=== PATIENT | female | born 1960 | race Caucasian/White ===

== ENCOUNTER 2019-12-29 23:16 | Observation (INO) ==
[2019-12-29 23:24] VITALS: BMI 28.1
--- NOTE | 2019-12-29 23:36 | DR.GENAD ---
HPI Time Seen Time Seen by Provider: 12/29/19 23:35 PCP Primary Care Physician: IAMK HPI Comment HPI Comment: Pt found unresponsive as below; unable to obtain additional info as family not available. Complaint/Symptoms Chief Complaint:: EMS CALLED OUT TO UNRESPONSIVE, UPON PTS ARRIVAL TO ER PTS FAMILY SAID SHE TOOK SOMA/CLONAZEPAM 30 MINS PRIOR TO CALLING EMS, UNK HOW MANY OR IF ANY THING ELSE, PT RESPONDS TO PAINFUL STIMULI. MD AT BEDSIDE COVID-19 Coronavirus risk:travel/contact w/high risk person: No Has patient experienced Coronavirus symptoms: No Source History Provided: Family Member and EMS Mode of Arrival Mode of Arrival: EMS Timing Onset of Chief Complaint: 12/29/19 PMH PMH Past Medical History: No Past Medical History Comment: UNK Past Surgical History: No Surgical History: Unknown Family History History of Family Medical Conditions: No Family Medical History Comment: UNK Social History Does patient currently use any type of tobacco product: No Have you used tobacco products in the last 12 months: No Type of Tobacco Use: None Does any household member use tobacco: No Alcohol Use: None Do you use any recreational Drugs:: No Lives With: Family Lives Where: Home Travel Risk Coronavirus risk:travel/contact w/high risk person: No Has patient experienced Coronavirus symptoms: No Infectious screening In the last 2 months have you had wt loss of >10#?: NO Have you had fever, night sweats or hemotysis?: No Have you traveled outside the country in the last 6 months?: No Isolation: Standard ROS Review of Systems Unable to Obtain Due To: Altered mental status (unresponsive) PE Vital Signs Vitals: Temperature 96.7 F Pulse Rate [Apical] 54 Pulse Rate 61 Respiratory Rate 24 Blood Pressure [Left Arm] 167/85 Blood Pressure 107/67 O2 Sat by Pulse Oximetry 98 General Limitations: Altered Mental Status (unresponsive) General Appearance: Appears Intoxicated Head Head Exam: Normal Inspection and Atraumatic Eyes Eye exam: Other (1 mm pupils with little reaction) Neck Neck Exam: Normal Inspection, Full ROM and Trachea Midline Chest Chest Inspection: Normal Inspection Respiratory Respiratory Exam: Normal Lung Sounds Bilat and Accessory Muscle Use Respiratory Exam: Bilateral: Clear to Auscultation Cardiovascular Cardiovascular Exam: Regular Rate and Normal Rhythm Abdominal Exam Abdominal Exam: Normal Inspection, Normal Bowel Sounds and Soft Neurologic Neurological Exam: Other (unresponsive to sternal rub) Skin Skin Exam: Warm and Dry COURSE Treatment Treatment: [address] Ordonez Reevaluation 1st: Improved (moving more) 2nd: Improved (much more alert; hollering out intermittently for Jonel) ROR Labs Reviewed Laboratory Results Reviewed?: Yes Result Diagrams: 12/29/19 23:44 12/31/19 04:00 Laboratory: WBC 5.6 X10^3/uL (3.6-10.0) 12/29/19 23:44 RBC 3.78 X10^6/uL (3.5-5.4) 12/29/19 23:44 Hgb 12.5 g/dL (12.0-16.0) 12/29/19 23:44 Hct 36.8 % (36.0-47.0) 12/29/19 23:44 MCV 97.3 fL (80.0-100.0) 12/29/19 23:44 MCH 33.0 pg (27.0-34.0) 12/29/19 23:44 MCHC 33.9 g/dL (33.0-35.0) 12/29/19 23:44 RDW 14.1 % (11.6-16.5) 12/29/19 23:44 Plt Count 141 X10^3/uL (150.0-450.0) L 12/29/19 23:44 MPV 8.6 fL (7.4-11.0) 12/29/19 23:44 Neut % (Auto) 38.3 % (42.0-75.0) L 12/29/19 23:44 Lymph % (Auto) 51.2 % (21.0-51.0) H 12/29/19 23:44 [place] % (Auto) 5.1 % (0.0-13.0) 12/29/19 23:44 Eos % (Auto) 4.2 % (0.9-2.9) H 12/29/19 23:44 Baso % (Auto) 1.2 % (0.2-1.0) H 12/29/19 23:44 Neut # (Auto) 2.2 x10^3/uL (2.2-4.8) 12/29/19 23:44 Lymph # (Auto) 2.9 X10^3/uL (1.3-2.9) 12/29/19 23:44 [place] # (Auto) 0.3 x10^3/uL (0.3-0.8) 12/29/19 23:44 Eos # (Auto) 0.2 x10^3/uL (0.0-0.2) 12/29/19 23:44 Baso # (Auto) 0.1 X10^3/uL (0.0-0.1) 12/29/19 23:44 Absolute Nucleated RBC 0.1 /100WBC 12/29/19 23:44 Sodium 148 mmol/L (136-145) H 12/30/19 07:08 Corrected Sodium TNP 12/30/19 07:08 Potassium 3.5 mmol/L (3.5-5.1) 12/30/19 07:08 Chloride 111 mmol/L (98-107) H 12/30/19 07:08 Carbon Dioxide 28.2 mmol/L (21-32) 12/30/19 07:08 BUN 10 mg/dL (7-18) 12/30/19 07:08 Creatinine 1.00 mg/dL (0.55-1.02) 12/30/19 07:08 Est GFR (MDRD) Af Amer > 60 (>60) 12/30/19 07:08 Est GFR (MDRD) Non-Af > 60 (>60) 12/30/19 07:08 Glucose 88 mg/dL (65-99) 12/30/19 07:08 Calcium 8.9 mg/dL (8.5-10.1) 12/30/19 07:08 Corrected Calcium 9.1 mg/dL (8.5-10.1) 12/29/19 23:44 Magnesium 1.8 mg/dL (1.7-2.9) 12/30/19 07:08 Total Bilirubin 0.20 mg/dL (0.2-1.0) 12/29/19 23:44 AST 14 Units/L (15-37) L 12/29/19 23:44 ALT 13 Units/L (12-78) 12/29/19 23:44 Alkaline Phosphatase 63 Units/L (46-116) 12/29/19 23:44 Total Protein 6.4 g/dL (6.4-8.2) 12/29/19 23:44 Albumin 3.3 g/dL (3.4-5.0) L 12/29/19 23:44 Globulin 3.1 g/dL (2.5-4.5) 12/29/19 23:44 Albumin/Globulin Ratio 1.1 Ratio (1.1-2.1) 12/29/19 23:44 Specimen Type Catherized urine 12/30/19 10:46 Urine Color Yellow (YELLOW) 12/30/19 10:46 Urine Appearance Hazy (CLEAR) 12/30/19 10:46 Urine pH 6.5 (5.0 - 8.0) 12/30/19 10:46 Ur Specific [place] 1.010 (1.000-1.030) 12/30/19 10:46 Urine Protein Negative (NEGATIVE) 12/30/19 10:46 Urine Glucose (UA) Negative (NEGATIVE) 12/30/19 10:46 Urine Ketones Negative (NEGATIVE) 12/30/19 10:46 Urine Occult Blood 1+ (NEGATIVE) 12/30/19 10:46 Urine Nitrite Negative (NEGATIVE) 12/30/19 10:46 Urine Bilirubin Negative (NEGATIVE) 12/30/19 10:46 Urine Urobilinogen Normal (NORMAL) 12/30/19 10:46 Ur Leukocyte Esterase Negative (NEGATIVE) 12/30/19 10:46 Urine RBC 0-2 /HPF (0-3) 12/30/19 10:46 Urine WBC None seen /HPF (0-5) 12/30/19 10:46 Ur Squamous Epith Cells Rare /HPF (NEGATIVE) 12/30/19 10:46 Urine Bacteria Negative /HPF (NEGATIVE) 12/30/19 10:46 Ur Culture Indicated? No/not indicated 12/30/19 10:46 Urine Opiates Screen Negative (NEG=<300) 12/30/19 00:08 Urine Methadone Screen Negative (NEG=<300) 12/30/19 00:08 Ur Barbiturates Screen Negative (NEG=<200) 12/30/19 00:08 Ur Phencyclidine Scrn Negative (NEG=<25) 12/30/19 00:08 Ur Amphetamines Screen Negative (NEG=<1000) 12/30/19 00:08 U Benzodiazepines Scrn Positive (NEG=<200) A 12/30/19 00:08 Urine Cocaine Screen Negative (NEG=<300) 12/30/19 00:08 U Marijuana (THC) Screen Negative (NEG=<50) 12/30/19 00:08 Opioid Opioid Risk Tool Age (Urban box if 16-45): No Total: 0 Total Score Risk Category: Low Risk Copyright: Uriel CALDERON predicting aberrant behaviors Diagnosis Discharge Problem: Unresponsive, Hypokalemia, Altered mental status, Hypothermia Instructions Instructions: Confusion Hypokalemia Hand Washing, [id number] Drug Overdose Personal Hygiene Hypothermia Prevention Forms: Precautions for COVID19 Patient Portal Social Distancing
[2019-12-29 23:56] LABS: BASOPHILS # (AUTO) 0.1 X10^3/uL (0.0-0.1); BASOPHILS % (AUTO) 1.2 % (0.2-1.0); EOSINOPHILS # (AUTO) 0.2 x10^3/uL (0.0-0.2); EOSINOPHILS % (AUTO) 4.2 % (0.9-2.9); HEMATOCRIT 36.8 % (36.0-47.0); HEMOGLOBIN 12.5 g/dL (12.0-16.0); LYMPHOCYTES # (AUTO) 2.9 X10^3/uL (1.3-2.9); LYMPHOCYTES % (AUTO) 51.2 % (21.0-51.0); MEAN CORPUSCULAR HGB CONC 33.9 g/dL (33.0-35.0); MEAN CORPUSCULAR VOLUME 97.3 fL (80.0-100.0); MEAN PLATELET VOLUME 8.6 fL (7.4-11.0); MONOCYTES # (AUTO) 0.3 x10^3/uL (0.3-0.8); MONOCYTES % (AUTO) 5.1 % (0.0-13.0); NEUTROPHILS # (AUTO) 2.2 x10^3/uL (2.2-4.8); NEUTROPHILS % (AUTO) 38.3 % (42.0-75.0); PLATELET COUNT 141 X10^3/uL (150.0-450.0); RED BLOOD COUNT 3.78 X10^6/uL (3.5-5.4); RED CELL DISTRIBUTION WIDTH 14.1 % (11.6-16.5); WHITE BLOOD COUNT 5.6 X10^3/uL (3.6-10.0)
[2019-12-30 00:02] LABS: BLOOD UREA NITROGEN 11 mg/dL (7-18); CALCIUM 8.5 mg/dL (8.5-10.1); CARBON DIOXIDE 30.2 mmol/L (21-32); CHLORIDE 110 mmol/L (98-107); CREATININE 0.95 mg/dL (0.55-1.02); SODIUM 148 mmol/L (136-145); eGFR NON BLACK RACES > 60 (>60)
[2019-12-30 00:07] LABS: ALANINE AMINOTRANSFERASE 13 Units/L (12-78); ALBUMIN 3.3 g/dL (3.4-5.0); ALKALINE PHOSPHATASE 63 Units/L (46-116); ASPARTATE AMINO TRANSFERASE 14 Units/L (15-37); COR CA(FOR HYPOALB) 9.1 mg/dL (8.5-10.1); TOTAL PROTEIN 6.4 g/dL (6.4-8.2)
[2019-12-30] MEDS: NS + KCL 40 MEQ/L 1,000 ML IV SCH (01:50)
[2019-12-30 07:19] LABS: BLOOD UREA NITROGEN 10 mg/dL (7-18); CALCIUM 8.9 mg/dL (8.5-10.1); CARBON DIOXIDE 28.2 mmol/L (21-32); CHLORIDE 111 mmol/L (98-107); MAGNESIUM 1.8 mg/dL (1.7-2.9); SODIUM 148 mmol/L (136-145); eGFR NON BLACK RACES > 60 (>60)
[2019-12-30] MEDS ORDERED: NS 500 ML IV 1,000 ML IV ONE (08:12)
[2019-12-30] MEDS ORDERED: NS 1000 ML 1,000 ML ONE (08:14)
[2019-12-30] MEDS ORDERED: NS 1000 ML 1,000 ML IV ONE (08:23)
[2019-12-30] MEDS ORDERED: ROMAZICON INJ 0.5 MG IVP ONE (08:28)
--- NOTE | 2019-12-30 08:38 | CT ---
HISTORYAltered mental statusSTUDYBRAIN W/O CONTechnique: Axial noncontrast images with coronal and sagittal reformats. Dose reduction procedures were used with mA/kv adjusted for body size.COMPARISONNoneFINDINGSThe ventricles are normal in size shape and position. There is some cortical atrophy present likely age related. There is a small old CVA in the right posterior frontal subcortical white matter. 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 The visualized sinuses are clear. The calvarium is intact.IMPRESSIONNo definite acute intracranial abnormalitySmall-vessel diseaseMild cortical atrophy likely age related.Old infarct right posterior frontal cortex and subcortical white matterCSF density lesion in the right posterior fossa likely a benign extra-axial cystElectronically signed by: LACHO REDDING (Dec 30, 2019 08:36:51)
[2019-12-30] MEDS ORDERED: ROMAZICON INJ 0.5 MG ONE (09:25)
[2019-12-30 11:04] LABS: BILIRUBIN,URINE NEGATIVE (NEGATIVE); BLOOD/HEMOGLOBIN,URINE 1+ (NEGATIVE); GLUCOSE, URINE NEGATIVE (NEGATIVE); KETONES,URINE NEGATIVE (NEGATIVE); LEUKOCYTE ESTERASE ,URINE NEGATIVE (NEGATIVE); NITRITES,URINE NEGATIVE (NEGATIVE); PH,URINE 6.5 (5.0 - 8.0); PROTEIN,URINE NEGATIVE (NEGATIVE); UROBILINOGEN,URINE NORMAL (NORMAL)
[2019-12-30 11:10] LABS: APPEARANCE,URINE HAZY (CLEAR); COLOR,URINE YELLOW (YELLOW)
[2019-12-30 11:23] LABS: RBC,URINE 0-2 /HPF (0-3); SQUAMOUS EPITHELIAL CELL,UR RARE /HPF (NEGATIVE)
[2019-12-30 11:24] LABS: BACTERIA,URINE NEGATIVE /HPF (NEGATIVE)
--- NOTE | 2019-12-30 11:45 | DR.H&P ---
H&P History & Physical for Day of: H&P Date: 12/30/19 Chief Complaint Chief Complaint: Altered mental status Allergies Allergies Allergy/AdvReac Type Severity Reaction Status Date / Time cephalexin [From Keflex] Allergy Verified 12/29/19 23:24 History of Present Illness History of Present Illness: Pt is a 59 y/o f pmhx HTN, NII, Muscle spasms, admitted for altered mental status after taking soma and clonazepam. Pt presented to the ED via EMS after being found unresponsive and no additional information obtained as family not available. However, they told EMS that she had taken medication 30 minutes prior to them calling. Initial labs/imaging: Brain CT:No definite acute intracranial abnormality. Wbc 5.6, Hgb 12.5, Plt 141, Na 148, K 2.9, Cr 0.95, Mag 1.8, AST 14, ALT 13, UA negative. -Pt was given flumazenil and admitted for further monitoring as medication effects wear off. She is still having slurred speech, drowsiness, fatigue, and weakness. She is AOx2. Electrolyte replacement per protocol. Hold sedating medications. Continue to monitor and follow up labs in morning. Past Surgical History Surgical History: Unknown Social History Does patient currently use any type of tobacco product: No Have you used tobacco products in the last 12 months: No Type of Tobacco Use: None Does any household member use tobacco: No Alcohol Use: None Medications Home Medications: cephalexin [From Keflex] Allergy (Verified 12/29/19 23:24) CONTINUE taking the following medications atorvastatin 40 mg PO HS 12/30/19 [History] carisoprodol 350 mg PO TID PRN 12/30/19 [History] clonazepam 1 mg PO BID PRN 12/30/19 [History] gabapentin 300 mg PO TID 12/30/19 [History] lisinopril 10 mg PO DAILY 12/30/19 [History] pantoprazole 40 mg PO DAILY 12/30/19 [History] quetiapine 200 mg PO HS 12/30/19 [History] topiramate 100 mg PO BID 12/30/19 [History] Labs Result Diagrams: 12/29/19 23:44 12/30/19 07:08 Labs: Laboratory WBC 5.6 X10^3/uL (3.6-10.0) 12/29/19 23:44 RBC 3.78 X10^6/uL (3.5-5.4) 12/29/19 23:44 Hgb 12.5 g/dL (12.0-16.0) 12/29/19 23:44 Hct 36.8 % (36.0-47.0) 12/29/19 23:44 MCV 97.3 fL (80.0-100.0) 12/29/19 23:44 MCH 33.0 pg (27.0-34.0) 12/29/19 23:44 MCHC 33.9 g/dL (33.0-35.0) 12/29/19 23:44 RDW 14.1 % (11.6-16.5) 12/29/19 23:44 Plt Count 141 X10^3/uL (150.0-450.0) L 12/29/19 23:44 MPV 8.6 fL (7.4-11.0) 12/29/19 23:44 Neut % (Auto) 38.3 % (42.0-75.0) L 12/29/19 23:44 Lymph % (Auto) 51.2 % (21.0-51.0) H 12/29/19 23:44 [place] % (Auto) 5.1 % (0.0-13.0) 12/29/19 23:44 Eos % (Auto) 4.2 % (0.9-2.9) H 12/29/19 23:44 Baso % (Auto) 1.2 % (0.2-1.0) H 12/29/19 23:44 Neut # (Auto) 2.2 x10^3/uL (2.2-4.8) 12/29/19 23:44 Lymph # (Auto) 2.9 X10^3/uL (1.3-2.9) 12/29/19 23:44 [place] # (Auto) 0.3 x10^3/uL (0.3-0.8) 12/29/19 23:44 Eos # (Auto) 0.2 x10^3/uL (0.0-0.2) 12/29/19 23:44 Baso # (Auto) 0.1 X10^3/uL (0.0-0.1) 04/20/20 23:44 Absolute Nucleated RBC 0.1 /100WBC 12/29/19 23:44 Sodium 148 mmol/L (136-145) H 12/30/19 07:08 Corrected Sodium TNP 12/30/19 07:08 Potassium 3.5 mmol/L (3.5-5.1) 12/30/19 07:08 Chloride 111 mmol/L (98-107) H 12/30/19 07:08 Carbon Dioxide 28.2 mmol/L (21-32) 12/30/19 07:08 BUN 10 mg/dL (7-18) 12/30/19 07:08 Creatinine 1.00 mg/dL (0.55-1.02) 12/30/19 07:08 Est GFR (MDRD) Af Amer > 60 (>60) 12/30/19 07:08 Est GFR (MDRD) Non-Af > 60 (>60) 12/30/19 07:08 Glucose 88 mg/dL (65-99) 12/30/19 07:08 Calcium 8.9 mg/dL (8.5-10.1) 12/30/19 07:08 Corrected Calcium 9.1 mg/dL (8.5-10.1) 12/29/19 23:44 Magnesium 1.8 mg/dL (1.7-2.9) 12/30/19 07:08 Total Bilirubin 0.20 mg/dL (0.2-1.0) 12/29/19 23:44 AST 14 Units/L (15-37) L 12/29/19 23:44 ALT 13 Units/L (12-78) 12/29/19 23:44 Alkaline Phosphatase 63 Units/L (46-116) 12/29/19 23:44 Total Protein 6.4 g/dL (6.4-8.2) 12/29/19 23:44 Albumin 3.3 g/dL (3.4-5.0) L 12/29/19 23:44 Globulin 3.1 g/dL (2.5-4.5) 12/29/19 23:44 Albumin/Globulin Ratio 1.1 Ratio (1.1-2.1) 12/29/19 23:44 Specimen Type Catherized urine 12/30/19 10:46 Urine Color Yellow (YELLOW) 12/30/19 10:46 Urine Appearance Hazy (CLEAR) 12/30/19 10:46 Urine pH 6.5 (5.0 - 8.0) 12/30/19 10:46 Ur Specific [place] 1.010 (1.000-1.030) 12/30/19 10:46 Urine Protein Negative (NEGATIVE) 12/30/19 10:46 Urine Glucose (UA) Negative (NEGATIVE) 12/30/19 10:46 Urine Ketones Negative (NEGATIVE) 12/30/19 10:46 Urine Occult Blood 1+ (NEGATIVE) 12/30/19 10:46 Urine Nitrite Negative (NEGATIVE) 12/30/19 10:46 Urine Bilirubin Negative (NEGATIVE) 12/30/19 10:46 Urine Urobilinogen Normal (NORMAL) 12/30/19 10:46 Ur Leukocyte Esterase Negative (NEGATIVE) 12/30/19 10:46 Urine RBC 0-2 /HPF (0-3) 12/30/19 10:46 Urine WBC None seen /HPF (0-5) 12/30/19 10:46 Ur Squamous Epith Cells Rare /HPF (NEGATIVE) 12/30/19 10:46 Urine Bacteria Negative /HPF (NEGATIVE) 12/30/19 10:46 Ur Culture Indicated? No/not indicated 12/30/19 10:46 Urine Opiates Screen Negative (NEG=<300) 12/30/19 00:08 Urine Methadone Screen Negative (NEG=<300) 12/30/19 00:08 Ur Barbiturates Screen Negative (NEG=<200) 12/30/19 00:08 Ur Phencyclidine Scrn Negative (NEG=<25) 12/30/19 00:08 Ur Amphetamines Screen Negative (NEG=<1000) 12/30/19 00:08 U Benzodiazepines Scrn Positive (NEG=<200) A 12/30/19 00:08 Urine Cocaine Screen Negative (NEG=<300) 12/30/19 00:08 U Marijuana (THC) Screen Negative (NEG=<50) 12/30/19 00:08 Review of Systems Constitutional: Weakness Eyes: No Symptoms Reported ENT: No Symptoms Reported Respiratory: No Symptoms Reported Cardiovascular: No Symptoms Reported Gastrointestinal: No Symptoms Reported Genitourinary: No Symptoms Reported Musculoskeletal: No Symptoms Reported Skin: No Symptoms Reported Neurological: Weakness, Change in Speech and Confusion Physical Exam Vital Signs: Temperature 96.7 F Pulse Rate [Apical] 54 Pulse Rate 61 Respiratory Rate 24 Blood Pressure [Left Arm] 167/85 Blood Pressure 107/67 O2 Sat by Pulse Oximetry 98 Oriented: Person and Place Eyes: Normal Ear: Normal Nose: Normal Respiratory: Clear Throughout Cardiovascular: Normal : Normal Auscultation: Bowel Sounds: Normal Palpation: Normal Tenderness: Normal Skin: Normal Musculoskeletal: Normal Speech Pattern: Slurred Assessment/Plan (1) Altered mental status: Status: Acute Plan: Hold sedating medications. Unintentional overdose. No SI/HI. Continue to monitor. (2) Hypokalemia: Status: Acute Plan: Per protocol. (3) Hypothermia: Status: Acute (4) Unresponsive: Status: Acute Review H&P Reviewed: Yes Patient was examined?: Yes
[2019-12-30] MEDS ORDERED: APRESOLINE INJ 20 MG VIAL IVP PRN (15:39)
[2019-12-30] MEDS: ZESTRIL TAB 10 MG PO SCH (18:18)
[2019-12-30] MEDS ORDERED: ULTRAM PO PRN (19:59)
[2019-12-31] MEDS: NS + KCL 40 MEQ/L 1,000 ML IV SCH ×2 (01:00→03:02)
[2019-12-31 06:09] LABS: ALANINE AMINOTRANSFERASE 14 Units/L (12-78); ALBUMIN 3.4 g/dL (3.4-5.0); ALKALINE PHOSPHATASE 70 Units/L (46-116); ASPARTATE AMINO TRANSFERASE 16 Units/L (15-37); BLOOD UREA NITROGEN 7 mg/dL (7-18); CALCIUM 8.7 mg/dL (8.5-10.1); CARBON DIOXIDE 27.9 mmol/L (21-32); CHLORIDE 109 mmol/L (98-107); CREATININE 0.87 mg/dL (0.55-1.02); SODIUM 146 mmol/L (136-145); TOTAL PROTEIN 6.8 g/dL (6.4-8.2); eGFR NON BLACK RACES > 60 (>60)
--- NOTE | 2019-12-31 08:36 | W.DIS.FURT ---
Summary of Discharge Discharge Summary of Date Date of Exam: 12/31/19 Admission Date Date of Admission: 12/30/19 Admission Diagnosis Patient Problems (Updated 12/30/19 @ 11:24 by Loren Tate) Unresponsive (Acute) R41.89 Hypokalemia (Acute) E87.6 Altered mental status (Acute) R41.82 Hypothermia (Acute) T68.XXXA Hospital Course: Pt is a 59 y/o f pmhx HTN, NII, Muscle spasms, admitted for altered mental status after unintentional overdose of soma and clonazepam. Pt presented to the ED via EMS after being found unresponsive and no additional information obtained as family not available. However, family told EMS that she had taken medication 30 minutes prior to them calling. Labs/imaging: Brain CT:No definite acute intracranial abnormality. Pt was given flumazenil and admitted for further monitoring. Pt initially having slurred speech, drowsiness, fatigue, and weakness that resolved on day of discharge. She remained AOx4. Physical exam unremarkable. Sedating medications held (Soma, Klonopin) and instructed to discontinue on discharge. Pt denied suicidal/homicidal ideations. Pt stable on discharge, instructed to follow up with pcp in 1 week. Vital Signs: Vital Signs (72 hours) 12/29/19 23:18 12/29/19 23:30 12/30/19 00:00 Temperature 97.7 F Pulse Rate 61 Pulse Rate [Apical] 61 53 L Pulse Rate [Right Brachial] Respiratory Rate 16 21 25 H Blood Pressure 107/67 Blood Pressure [Left Arm] 100/64 98/60 Blood Pressure [Right Arm] O2 Sat by Pulse Oximetry 98 99 100 12/30/19 01:00 12/30/19 02:00 12/30/19 02:30 Temperature Pulse Rate Pulse Rate [Apical] 56 L 61 62 Pulse Rate [Right Brachial] Respiratory Rate 16 20 20 Blood Pressure Blood Pressure [Left Arm] 125/71 127/76 128/72 Blood Pressure [Right Arm] O2 Sat by Pulse Oximetry 99 95 95 12/30/19 03:00 12/30/19 03:30 12/30/19 04:00 Temperature Pulse Rate Pulse Rate [Apical] 57 L 63 61 Pulse Rate [Right Brachial] Respiratory Rate 19 17 16 Blood Pressure Blood Pressure [Left Arm] 115/77 136/63 139/65 Blood Pressure [Right Arm] O2 Sat by Pulse Oximetry 100 100 95 12/30/19 05:00 12/30/19 06:30 12/30/19 07:00 Temperature Pulse Rate Pulse Rate [Apical] 55 L 53 L 60 Pulse Rate [Right Brachial] Respiratory Rate 16 22 22 Blood Pressure Blood Pressure [Left Arm] 145/67 151/86 137/78 Blood Pressure [Right Arm] O2 Sat by Pulse Oximetry 96 96 98 12/30/19 10:44 12/30/19 11:10 12/30/19 11:30 Temperature 96.7 F L Pulse Rate Pulse Rate [Apical] 54 L 53 L 52 L Pulse Rate [Right Brachial] Respiratory Rate 24 19 15 Blood Pressure Blood Pressure [Left Arm] 167/85 167/83 186/83 Blood Pressure [Right Arm] O2 Sat by Pulse Oximetry 98 99 100 12/30/19 11:49 12/30/19 12:00 12/30/19 16:00 Temperature 97.3 F L 97.3 F L 98.7 F Pulse Rate Pulse Rate [Apical] Pulse Rate [Right Brachial] 57 L 60 Respiratory Rate 18 18 Blood Pressure Blood Pressure [Left Arm] Blood Pressure [Right Arm] 188/87 143/68 O2 Sat by Pulse Oximetry 96 96 12/30/19 20:00 12/30/19 20:50 12/30/19 21:50 Temperature 98.5 F Pulse Rate Pulse Rate [Apical] Pulse Rate [Right Brachial] 63 Respiratory Rate 18 18 18 Blood Pressure Blood Pressure [Left Arm] Blood Pressure [Right Arm] 139/83 O2 Sat by Pulse Oximetry 97 12/31/19 00:00 12/31/19 04:00 Temperature 98.3 F 98.5 F Pulse Rate Pulse Rate [Apical] Pulse Rate [Right Brachial] 54 L 53 L Respiratory Rate 18 17 Blood Pressure Blood Pressure [Left Arm] Blood Pressure [Right Arm] 133/60 137/89 O2 Sat by Pulse Oximetry 93 L 97 Labs: Laboratory Last Values WBC 5.6 X10^3/uL (3.6-10.0) 12/29/19 23:44 RBC 3.78 X10^6/uL (3.5-5.4) 12/29/19 23:44 Hgb 12.5 g/dL (12.0-16.0) 12/29/19 23:44 Hct 36.8 % (36.0-47.0) 12/29/19 23:44 MCV 97.3 fL (80.0-100.0) 12/29/19 23:44 MCH 33.0 pg (27.0-34.0) 12/29/19 23:44 MCHC 33.9 g/dL (33.0-35.0) 12/29/19 23:44 RDW 14.1 % (11.6-16.5) 12/29/19 23:44 Plt Count 141 X10^3/uL (150.0-450.0) L 12/29/19 23:44 MPV 8.6 fL (7.4-11.0) 12/29/19 23:44 Neut % (Auto) 38.3 % (42.0-75.0) L 12/29/19 23:44 Lymph % (Auto) 51.2 % (21.0-51.0) H 12/29/19 23:44 [place] % (Auto) 5.1 % (0.0-13.0) 12/29/19 23:44 Eos % (Auto) 4.2 % (0.9-2.9) H 12/29/19 23:44 Baso % (Auto) 1.2 % (0.2-1.0) H 12/29/19 23:44 Neut # (Auto) 2.2 x10^3/uL (2.2-4.8) 12/29/19 23:44 Lymph # (Auto) 2.9 X10^3/uL (1.3-2.9) 12/29/19 23:44 [place] # (Auto) 0.3 x10^3/uL (0.3-0.8) 12/29/19 23:44 Eos # (Auto) 0.2 x10^3/uL (0.0-0.2) 12/29/19 23:44 Baso # (Auto) 0.1 X10^3/uL (0.0-0.1) 12/29/19 23:44 Absolute Nucleated RBC 0.1 /100WBC 12/29/19 23:44 Sodium 146 mmol/L (136-145) H 12/31/19 04:00 Corrected Sodium TNP 12/31/19 04:00 Potassium 3.6 mmol/L (3.5-5.1) 12/31/19 04:00 Chloride 109 mmol/L (98-107) H 12/31/19 04:00 Carbon Dioxide 27.9 mmol/L (21-32) 12/31/19 04:00 BUN 7 mg/dL (7-18) 12/31/19 04:00 Creatinine 0.87 mg/dL (0.55-1.02) 12/31/19 04:00 Est GFR (MDRD) Af Amer > 60 (>60) 12/31/19 04:00 Est GFR (MDRD) Non-Af > 60 (>60) 12/31/19 04:00 Glucose 79 mg/dL (65-99) 12/31/19 04:00 Calcium 8.7 mg/dL (8.5-10.1) 12/31/19 04:00 Corrected Calcium TNP 12/31/19 04:00 Magnesium 1.8 mg/dL (1.7-2.9) 12/30/19 07:08 Total Bilirubin 0.30 mg/dL (0.2-1.0) 12/31/19 04:00 AST 16 Units/L (15-37) 12/31/19 04:00 ALT 14 Units/L (12-78) 12/31/19 04:00 Alkaline Phosphatase 70 Units/L (46-116) 12/31/19 04:00 Total Protein 6.8 g/dL (6.4-8.2) 12/31/19 04:00 Albumin 3.4 g/dL (3.4-5.0) 12/31/19 04:00 Globulin 3.4 g/dL (2.5-4.5) 12/31/19 04:00 Albumin/Globulin Ratio 1.0 Ratio (1.1-2.1) L 12/31/19 04:00 Specimen Type Catherized urine 12/30/19 10:46 Urine Color Yellow (YELLOW) 12/30/19 10:46 Urine Appearance Hazy (CLEAR) 12/30/19 10:46 Urine pH 6.5 (5.0 - 8.0) 12/30/19 10:46 Ur Specific [place] 1.010 (1.000-1.030) 12/30/19 10:46 Urine Protein Negative (NEGATIVE) 12/30/19 10:46 Urine Glucose (UA) Negative (NEGATIVE) 12/30/19 10:46 Urine Ketones Negative (NEGATIVE) 12/30/19 10:46 Urine Occult Blood 1+ (NEGATIVE) 12/30/19 10:46 Urine Nitrite Negative (NEGATIVE) 12/30/19 10:46 Urine Bilirubin Negative (NEGATIVE) 12/30/19 10:46 Urine Urobilinogen Normal (NORMAL) 12/30/19 10:46 Ur Leukocyte Esterase Negative (NEGATIVE) 12/30/19 10:46 Urine RBC 0-2 /HPF (0-3) 12/30/19 10:46 Urine WBC None seen /HPF (0-5) 12/30/19 10:46 Ur Squamous Epith Cells Rare /HPF (NEGATIVE) 12/30/19 10:46 Urine Bacteria Negative /HPF (NEGATIVE) 12/30/19 10:46 Ur Culture Indicated? No/not indicated 12/30/19 10:46 Urine Opiates Screen Negative (NEG=<300) 12/30/19 00:08 Urine Methadone Screen Negative (NEG=<300) 12/30/19 00:08 Ur Barbiturates Screen Negative (NEG=<200) 12/30/19 00:08 Ur Phencyclidine Scrn Negative (NEG=<25) 12/30/19 00:08 Ur Amphetamines Screen Negative (NEG=<1000) 12/30/19 00:08 U Benzodiazepines Scrn Positive (NEG=<200) A 12/30/19 00:08 Urine Cocaine Screen Negative (NEG=<300) 12/30/19 00:08 U Marijuana (THC) Screen Negative (NEG=<50) 12/30/19 00:08 Reason For Visit: ALTERED MENTAL STATUS,HYPOKALEMIA,HYPOTHERMIA Discharge Date Discharge Date: 12/31/19 Discharge Diagnosis All Active Problems (Updated 12/30/19 @ 11:24 by Loren Tate) Unresponsive (Acute) Hypokalemia (Acute) Altered mental status (Acute) Hypothermia (Acute) Plan of Treatment: Continue with present treatment and follow up plan. Pt is to keep follow up appointment as instructed and take medications as ordered. Discharge Medications Discharge Medications: cephalexin [From Keflex] Allergy (Verified 12/29/19 23:24) CONTINUE taking the following medications atorvastatin 40 mg PO HS 12/30/19 [History] gabapentin 300 mg PO TID 12/30/19 [History] lisinopril 10 mg PO DAILY 12/30/19 [History] pantoprazole 40 mg PO DAILY 12/30/19 [History] quetiapine 200 mg PO HS 12/30/19 [History] topiramate 100 mg PO BID 12/30/19 [History] Follow up and Referral Follow Up: 1 Week Discharge Disposition Discharge Disposition: Home Discharge Condition: Stable
[2019-12-31 08:46] VITALS: BP 135/62
[2019-12-31] MEDS: ZESTRIL TAB 10 MG PO SCH (08:50)
[2019-12-31] MEDS ORDERED: LIPITOR TAB 40 MG PO SCH (21:00)
== END 2019-12-31 10:50 | disposition home or self-care (01) ==
LOC: ER 23:17 → MED/SURG 23:17
PROVIDERS: ADMIT Family Medicine; ATTEND Family Medicine
DX: R41.82 Altered mental status, unspecified; Z86.73 Personal history of transient ischemic attack (TIA), and cerebral infarction without residual deficits; E87.6 Hypokalemia; F41.8 Other specified anxiety disorders; M62.838 Other muscle spasm; Y92.009 Unspecified place in unspecified non-institutional (private) residence as the place of occurrence of the external cause; Z79.899 Other long term (current) drug therapy; R41.89 Other symptoms and signs involving cognitive functions and awareness; T42.4X1A Poisoning by benzodiazepines, accidental (unintentional), initial encounter; T68.XXXA Hypothermia, initial encounter; T42.8X1A Poisoning by antiparkinsonism drugs and other central muscle-tone depressants, accidental (unintentional), initial encounter

== ENCOUNTER 2021-09-08 20:51 | Observation (INO) ==
--- NOTE | 2021-09-08 21:17 | DR.DIZZY ---
HPI Time seen Time Seen by Provider: 09/08/21 21:17 PCP Primary Care Physician: DR. COPPOLA Complaint Chief Complaint:: [facility] STATES PATIENT WAS BROUGHT INTO ER FOR LETHARGY AND HYPOTENSION. EMS STATES FIRST B/P WAS 96/54 AND SECOND B/P WAS 81/56. STATES THEY ADMINISTERED NARCAN 4MG AND PATIENT SEEMED TO COME AROUND SOME. PATIENT IS NOTED TO HAVE SLURRED SPEECH. COVID-19 Coronavirus risk:travel/contact w/high risk person: No Has patient experienced Coronavirus symptoms: No Source History Provided: Patient and EMS Mode of Arrival Mode of Arrival: EMS Timing Onset of Chief Complaint: 09/08/21 PMH PMH Past Medical History: Yes Past Medical History: CVA and Hypertension Past Surgical History: Yes Surgical History: Appendectomy, , Tonsillectomy and Other Family History History of Family Medical Conditions: Yes Family Medical History: Hypertension Social History Does any household member use tobacco: No Alcohol Use: None Do you use any recreational Drugs:: No Travel Risk Coronavirus risk:travel/contact w/high risk person: No Has patient experienced Coronavirus symptoms: No Infectious screening Have you traveled outside the country in the last 6 months?: No Isolation: Standard PE Vital Signs Vitals: Pulse Rate 48 Respiratory Rate 20 Blood Pressure [Right Arm] 110/70 Blood Pressure [Left Arm] 186/83 Blood Pressure [Standing] 191/94 Blood Pressure [Sitting] 164/82 Blood Pressure [Lying] 156/79 Blood Pressure 119/65 O2 Sat by Pulse Oximetry 98 ROR Labs Reviewed Result Diagrams: 09/08/21 00:52 09/08/21 00:52 Laboratory: WBC 6.9 X10^3/uL (3.6-10.0) 09/08/21 00:52 RBC 3.50 X10^6/uL (3.5-5.4) 09/08/21 00:52 Hgb 11.4 g/dL (12.0-16.0) L 09/08/21 00:52 Hct 33.9 % (36.0-47.0) L 09/08/21 00:52 MCV 96.9 fL (80.0-100.0) 09/08/21 00:52 MCH 32.6 pg (27.0-34.0) 09/08/21 00:52 MCHC 33.7 g/dL (33.0-35.0) 09/08/21 00:52 RDW 14.7 % (11.6-16.5) 09/08/21 00:52 Plt Count 76 X10^3/uL (150.0-450.0) L 09/08/21 00:52 Plt Count Comment Decreased (ADEQUATE) A 09/08/21 00:52 MPV 9.4 fL (7.4-11.0) 09/08/21 00:52 Neut % (Auto) 25.3 % (42.0-75.0) L 09/08/21 00:52 Lymph % (Auto) 63.1 % (21.0-51.0) H 09/08/21 00:52 [place] % (Auto) 7.0 % (0.0-13.0) 09/08/21 00:52 Eos % (Auto) 3.4 % (0.9-2.9) H 09/08/21 00:52 Baso % (Auto) 1.2 % (0.2-1.0) H 09/08/21 00:52 Neut # (Auto) 1.6 x10^3/uL (2.2-4.8) L 09/08/21 00:52 Lymph # (Auto) 4.0 X10^3/uL (1.3-2.9) H 09/08/21 00:52 [place] # (Auto) 0.4 x10^3/uL (0.3-0.8) 09/08/21 00:52 Eos # (Auto) 0.2 x10^3/uL (0.0-0.2) 09/08/21 00:52 Baso # (Auto) 0.1 X10^3/uL (0.0-0.1) 09/08/21 00:52 Absolute Nucleated RBC 0.3 /100WBC 09/08/21 00:52 Total Counted 100 09/08/21 00:52 Neutrophils % (Manual) 30 % (39-76) L 09/08/21 00:52 Lymphocytes % (Manual) 64 % (13-43) H 09/08/21 00:52 Monocytes % (Manual) 4 % (4-9) 09/08/21 00:52 Eosinophils % (Manual) 2 % (0-6) 09/08/21 00:52 Plt Morphology Comment Normal (NORMAL) 09/08/21 00:52 RBC Morphology Normal (NORMAL) 09/08/21 00:52 Sodium 143 mmol/L (136-145) 09/08/21 00:52 Corrected Sodium TNP 09/08/21 00:52 Potassium 3.3 mmol/L (3.5-5.1) L 09/08/21 00:52 Chloride 110 mmol/L (98-107) H 09/08/21 00:52 Carbon Dioxide 23.0 mmol/L (21-32) 09/08/21 00:52 BUN 18 mg/dL (7-18) 09/08/21 00:52 Creatinine 1.06 mg/dL (0.55-1.02) H 09/08/21 00:52 Est GFR (MDRD) Af Amer > 60 (>60) 09/08/21 00:52 Est GFR (MDRD) Non-Af 56 (>60) L 09/08/21 00:52 Glucose 92 mg/dL (65-99) 09/08/21 00:52 Lactic Acid 0.7 mmol/L (0.4-2.0) 09/08/21 00:52 Calcium 8.0 mg/dL (8.5-10.1) L 09/08/21 00:52 Corrected Calcium 8.8 mg/dL (8.5-10.1) 09/08/21 00:52 Total Bilirubin 0.10 mg/dL (0.2-1.0) L 09/08/21 00:52 AST 12 Units/L (15-37) L 09/08/21 00:52 ALT 7 Units/L (12-78) L 09/08/21 00:52 Alkaline Phosphatase 55 Units/L (46-116) 09/08/21 00:52 Creatine Kinase 105 Units/L (26-192) 09/08/21 00:52 CK-MB (CK-2) 1.2 ng/mL (0-4.0) 09/08/21 00:52 CK/CKMB % Calc 1.1 % (<4) 09/08/21 00:52 Troponin I < 0.02 ng/mL (0-1.5) 09/08/21 00:52 Total Protein 6.0 g/dL (6.4-8.2) L 09/08/21 00:52 Albumin 3.0 g/dL (3.4-5.0) L 09/08/21 00:52 Globulin 3.0 g/dL (2.5-4.5) 09/08/21 00:52 Albumin/Globulin Ratio 1.0 Ratio (1.1-2.1) L 09/08/21 00:52 Specimen Type Clean catch urine 09/09/21 01:58 Urine Color Yellow (YELLOW) 09/09/21 01:58 Urine Appearance Clear (CLEAR) 09/09/21 01:58 Urine pH 8.0 (5.0 - 8.0) 09/09/21 01:58 Ur Specific [place] 1.020 (1.000-1.030) 09/09/21 01:58 Urine Protein Negative (NEGATIVE) 09/09/21 01:58 Urine Glucose (UA) Negative (NEGATIVE) 09/09/21 01:58 Urine Ketones Negative (NEGATIVE) 09/09/21 01:58 Urine Occult Blood 1+ (NEGATIVE) 09/09/21 01:58 Urine Nitrite Negative (NEGATIVE) 09/09/21 01:58 Urine Bilirubin Negative (NEGATIVE) 09/09/21 01:58 Urine Urobilinogen Normal (NORMAL) 09/09/21 01:58 Ur Leukocyte Esterase Negative (NEGATIVE) 09/09/21 01:58 Urine RBC 0-2 /HPF (0-3) 09/09/21 01:58 Urine WBC 0-2 /HPF (0-5) 09/09/21 01:58 Ur Squamous Epith Cells Rare /HPF (NEGATIVE) 09/09/21 01:58 Urine Bacteria Negative /HPF (NEGATIVE) 09/09/21 01:58 Ur Culture Indicated? No/not indicated 09/09/21 01:58 SARS CoV-2 RNA Rapid VISHAL Negative (NEGATIVE) 09/09/21 01:15 Opioid Opioid Risk Tool Age (Urban box if 16-45): No History of Preadolescent Sexual Abuse: No Total: 0 Total Score Risk Category: Low Risk Copyright: [facility] predicting aberrant behaviors Instructions Forms: Precautions for COVID19 [facility] Patient Portal Social Distancing
[2021-09-08] MEDS ORDERED: NS 1,000 ML IV 1,000 ML ONE (22:13)
[2021-09-08] MEDS ORDERED: NS 1,000 ML IV 1,000 ML IV ONE (22:14)
[2021-09-09 01:16] LABS: LACTIC ACID 0.7 mmol/L (0.4-2.0)
[2021-09-09 01:21] LABS: BASOPHILS # (AUTO) 0.1 X10^3/uL (0.0-0.1); BASOPHILS % (AUTO) 1.2 % (0.2-1.0); EOSINOPHILS # (AUTO) 0.2 x10^3/uL (0.0-0.2); EOSINOPHILS % (AUTO) 3.4 % (0.9-2.9); HEMATOCRIT 33.9 % (36.0-47.0); HEMOGLOBIN 11.4 g/dL (12.0-16.0); LYMPHOCYTES % (AUTO) 63.1 % (21.0-51.0); MEAN CORPUSCULAR HEMOGLOBIN 32.6 pg (27.0-34.0); MEAN CORPUSCULAR HGB CONC 33.7 g/dL (33.0-35.0); MEAN CORPUSCULAR VOLUME 96.9 fL (80.0-100.0); MEAN PLATELET VOLUME 9.4 fL (7.4-11.0); MONOCYTES # (AUTO) 0.4 x10^3/uL (0.3-0.8); NEUTROPHILS # (AUTO) 1.6 x10^3/uL (2.2-4.8); NEUTROPHILS % (AUTO) 25.3 % (42.0-75.0); PLATELET COUNT 76 X10^3/uL (150.0-450.0); RED CELL DISTRIBUTION WIDTH 14.7 % (11.6-16.5)
[2021-09-09 01:23] LABS: ALANINE AMINOTRANSFERASE 7 Units/L (12-78); ALKALINE PHOSPHATASE 55 Units/L (46-116); ASPARTATE AMINO TRANSFERASE 12 Units/L (15-37); BLOOD UREA NITROGEN 18 mg/dL (7-18); CHLORIDE 110 mmol/L (98-107); CKMB % 1.1 % (<4); COR CA(FOR HYPOALB) 8.8 mg/dL (8.5-10.1); CREATINE KINASE 105 Units/L (26-192); CREATINE KINASE MB 1.2 ng/mL (0-4.0); CREATININE 1.06 mg/dL (0.55-1.02); SODIUM 143 mmol/L (136-145); eGFR NON BLACK RACES 56 (>60)
[2021-09-09 01:43] LABS: PLATELET MORPHOLOGY COMMENT NORMAL (NORMAL); WHITE BLOOD COUNT 6.9 X10^3/uL (3.6-10.0)
--- NOTE | 2021-09-09 01:56 | CT ---
PROCEDURE: CT Head without Contrast .HISTORY: Lethargy and hypotension.TECHNIQUE: Axial images were performed through the head without the administration of IV contrast with multiplanar reformations . Dose reduction techniques including Automated Exposure Control (AEC) and adjustment of mA and kV were utilized .COMPARISON: 01/28/2021.TECHNICAL QUALITY: Satisfactory .FINDINGS:Brain shows no mass, hemorrhage, or acute stroke.Encephalomalacia right cerebellum is unchanged from previous infarct.Mild periventricular old micro ischemic changes. Mild basal ganglia calcifications on the right.Ventricles are normal size for patient's age.No acute skull or scalp abnormality.Visualized sinuses and mastoids are clear.IMPRESSION:1. No acute intracranial abnormality.2. Mild senescent changes.3. Unchanged old right cerebellar infarct.Electronically signed by: Lobo Garcia (Sep 09, 2021 01:55:22)
[2021-09-09 02:29] LABS: BILIRUBIN,URINE NEGATIVE (NEGATIVE); BLOOD/HEMOGLOBIN,URINE 1+ (NEGATIVE); GLUCOSE, URINE NEGATIVE (NEGATIVE); KETONES,URINE NEGATIVE (NEGATIVE); LEUKOCYTE ESTERASE ,URINE NEGATIVE (NEGATIVE); NITRITES,URINE NEGATIVE (NEGATIVE); PROTEIN,URINE NEGATIVE (NEGATIVE); UROBILINOGEN,URINE NORMAL (NORMAL)
[2021-09-09 02:41] LABS: APPEARANCE,URINE CLEAR (CLEAR); BACTERIA,URINE NEGATIVE /HPF (NEGATIVE); COLOR,URINE YELLOW (YELLOW); RBC,URINE 0-2 /HPF (0-3); SQUAMOUS EPITHELIAL CELL,UR RARE /HPF (NEGATIVE)
[2021-09-09] MEDS ORDERED: NS 1,000 ML IV 1,000 ML IV SCH (03:01)
[2021-09-09] MEDS ORDERED: NS 1,000 ML IV 1,000 ML ONE (03:26)
--- NOTE | 2021-09-09 03:42 | RAD ---
PROCEDURE: Chest X-ray 1 View .HISTORY: Lethargy and hypotension.TECHNIQUE: AP view .COMPARISON: 12/22/2020.TECHNICAL QUALITY: Lung apices are not included on the study.FINDINGS:Normal size heart .Mediastinum and hilar regions show no masses or lymphadenopathy .Normal central vascularity .No pulmonary consolidation, masses, pleural fluid, or pneumothorax .No acute bony abnormality .IMPRESSION:No active cardiopulmonary disease .Electronically signed by: Lobo Garcia (Sep 09, 2021 03:40:19)
[2021-09-09 04:11] VITALS: BP 151/68
[2021-09-09 04:42] VITALS: BMI 27.1
[2021-09-09 07:38] LABS: BASOPHILS # (AUTO) 0.1 X10^3/uL (0.0-0.1); BASOPHILS % (AUTO) 1.5 % (0.2-1.0); EOSINOPHILS # (AUTO) 0.2 x10^3/uL (0.0-0.2); EOSINOPHILS % (AUTO) 4.2 % (0.9-2.9); HEMATOCRIT 36.3 % (36.0-47.0); HEMOGLOBIN 11.8 g/dL (12.0-16.0); LYMPHOCYTES # (AUTO) 2.9 X10^3/uL (1.3-2.9); LYMPHOCYTES % (AUTO) 63.7 % (21.0-51.0); MEAN CORPUSCULAR HGB CONC 32.6 g/dL (33.0-35.0); MEAN CORPUSCULAR VOLUME 98.2 fL (80.0-100.0); MEAN PLATELET VOLUME 9.4 fL (7.4-11.0); MONOCYTES # (AUTO) 0.3 x10^3/uL (0.3-0.8); MONOCYTES % (AUTO) 6.9 % (0.0-13.0); NEUTROPHILS # (AUTO) 1.1 x10^3/uL (2.2-4.8); NEUTROPHILS % (AUTO) 23.7 % (42.0-75.0); PLATELET COUNT 104 X10^3/uL (150.0-450.0); RED CELL DISTRIBUTION WIDTH 14.8 % (11.6-16.5); WHITE BLOOD COUNT 4.6 X10^3/uL (3.6-10.0)
[2021-09-09 07:59] LABS: ALANINE AMINOTRANSFERASE 9 Units/L (12-78); ALBUMIN 3.1 g/dL (3.4-5.0); ALKALINE PHOSPHATASE 60 Units/L (46-116); ASPARTATE AMINO TRANSFERASE 12 Units/L (15-37); BLOOD UREA NITROGEN 16 mg/dL (7-18); CARBON DIOXIDE 24.4 mmol/L (21-32); CHLORIDE 111 mmol/L (98-107); CKMB % 1.1 % (<4); COR CA(FOR HYPOALB) 8.7 mg/dL (8.5-10.1); CREATINE KINASE 104 Units/L (26-192); CREATINE KINASE MB 1.1 ng/mL (0-4.0); MAGNESIUM 1.9 mg/dL (1.7-2.9); SODIUM 144 mmol/L (136-145); TOTAL PROTEIN 6.1 g/dL (6.4-8.2); eGFR NON BLACK RACES 54 (>60)
[2021-09-09 08:05] LABS: PLATELET MORPHOLOGY COMMENT NORMAL (NORMAL)
== END 2021-09-09 09:05 | disposition left against medical advice (07) ==
LOC: ER 20:51 → MED/SURG 20:51
PROVIDERS: ADMIT Internal Medicine; ATTEND Internal Medicine

== ENCOUNTER 2022-02-28 03:02 | Observation (INO) ==
[2022-02-28] MEDS ORDERED: NARCAN INJ ONE (03:23)
[2022-02-28 03:41] LABS: BILIRUBIN,URINE NEGATIVE (NEGATIVE); BLOOD/HEMOGLOBIN,URINE NEGATIVE (NEGATIVE); GLUCOSE, URINE NEGATIVE (NEGATIVE); KETONES,URINE NEGATIVE (NEGATIVE); LEUKOCYTE ESTERASE ,URINE NEGATIVE (NEGATIVE); NITRITES,URINE NEGATIVE (NEGATIVE); PROTEIN,URINE NEGATIVE (NEGATIVE); UROBILINOGEN,URINE NORMAL (NORMAL)
[2022-02-28 03:51] LABS: APPEARANCE,URINE CLEAR (CLEAR); COLOR,URINE PALE YELLOW (YELLOW)
--- NOTE | 2022-02-28 04:18 | DR.DING ---
HPI Time Seen Time Seen by Provider: 02/28/22 04:17 PCP Primary Care Physician: blanco HPI Comment HPI Comment: PATIENT IS 61YR OLD FEMALE IN ER WITH EMS WITH AMS. SHE WAS UNRESPONSIVE AT HOME WITH A SUICIDE NOTE. ADVERTISING EXECUTIVE OFFICE DEPUTY GAVE NARCAN WITH MINIMAL RESPONSE. SHE IS AROUSABLE IN ER BUT SPEECH IS NOT CLEAR WITH HER ANSWER. SHE TOOK UNKOWN AMOUNT OF UNKOWN DRUG. Complaint Chief Complaint Doctors Comments: UNRESPONSIVE WITH SUICIDE NOTE. Chief Complaint:: PT WAS FOUND WITH SUCICIDE NOTE BY FAMILY PT WAS UNRESPONSIVE BUT BREATHING. PT GIVEN NARCAN 8 MG PER [facility] DEPUT[facility]. PT TOOK UNKNOWN DRUG OR AMOUNT. Reviewed Nurses Notes Review: Yes Source History Provided: EMS Mode of Arrival Mode of Arrival: EMS Timing Onset of Chief Complaint: 02/28/22 PMH PMH Past Medical History: Yes Past Medical History: CVA and Hypertension Past Surgical History: Yes Surgical History: Appendectomy, Hysterectomy, Ortho Surgery and Tonsillectomy Family History History of Family Medical Conditions: Yes Family Medical History: Hypertension Social History Does patient currently use any type of tobacco product: Yes Have you used tobacco products in the last 12 months: Yes Type of Tobacco Use: Cigarettes Does any household member use tobacco: Yes Do you use any recreational Drugs:: No Lives With: Family Lives Where: Home Infectious screening In the last 2 months have you had wt loss of >10#?: NO Have you had fever, night sweats or hemotysis?: No Have you traveled outside the country in the last 6 months?: No Isolation: Standard ROS Review of Systems Constitutional: No Symptoms Reported and See HPI Eyes: No Symptoms Reported and See HPI ENTM: No Symptoms Reported and See HPI Respiratoy: No Symptoms Reported and See HPI Cardiovascular: No Symptoms Reported and See HPI Gastrointestinal/Abdominal: No Symptoms Reported and See HPI Genitourinary: No Symptoms Reported and See HPI Neurological: No Symptoms Reported and See HPI Musculoskeletal: No Symptoms Reported and See HPI Integumentary: No Symptoms Reported and See HPI Hematologic/Lymphatic: No Symptoms Reported and See HPI Endocrine: No Symptoms Reported and See HPI Psychiatric: No Symptoms Reported and See HPI All Other Systems: Reviewed and Negative PE Vital signs Vitals: Temperature 97.8 F Pulse Rate 56 Respiratory Rate 10 Blood Pressure [Right Arm] 151/68 Blood Pressure [Left Arm] 142/82 Blood Pressure [Standing] 191/94 Blood Pressure [Sitting] 164/82 Blood Pressure [Lying] 156/79 Blood Pressure 141/77 O2 Sat by Pulse Oximetry 100 General Limitations: No Limitations General Appearance: Alert and In No Apparent Distress Head Head Exam: Normal Inspection and Atraumatic Eyes Eye exam: Normal Appearance ENT ENT Exam: Normal Exam Neck Neck Exam: Normal Inspection Chest Chest Inspection: Normal Inspection Respiratory Respiratory Exam: Normal Lung Sounds Bilat Cardiovascular Cardiovascular Exam: Regular Rate and Normal Rhythm Abdominal Exam Abdominal Exam: Normal Inspection, Normal Bowel Sounds and Soft Extremities Extremities Exam: Normal Inspection Back Back Exam: Normal Inspection Neurologic Neurological Exam: Alert and Oriented X3 Patient Oriented To: negative Person, Place or Time Speech: Other (speech not clear.) Cranial Nerve Exam: Gag reflex (XI): Normal Psychiatric Psychiatric Exam: Other (ams) Skin Skin Exam: Warm, Dry, Intact and Normal Color Other Exam Other Exam: neuro/moving all extremities. MDM Differential Diagnosis Differential Diagnosis: Suicidal attempt (AMS, SEMIRESPONSIVE, DRUG OVER DOSE.) COURSE Treatment Treatment: SEE ORDERS DONE WHILE PATIENT WAS IN ER. Consultation Consultation Comments: DISCUSSED PATIENT WITH DR. HARRISON. HE WILL ADMIT PATIENT. ROR Labs Reviewed Laboratory Results Reviewed?: Yes Result Diagrams: 03/01/22 04:00 03/01/22 04:00 Laboratory: WBC 3.8 X10^3/uL (3.6-10.0) 02/28/22 04:30 RBC 3.84 X10^6/uL (3.5-5.4) 02/28/22 04:30 Hgb 12.7 g/dL (12.0-16.0) 02/28/22 04:30 Hct 37.5 % (36.0-47.0) 02/28/22 04:30 MCV 97.6 fL (80.0-100.0) 02/28/22 04:30 MCH 33.1 pg (27.0-34.0) 02/28/22 04:30 MCHC 33.9 g/dL (33.0-35.0) 02/28/22 04:30 RDW 13.4 % (11.6-16.5) 02/28/22 04:30 Plt Count 82 X10^3/uL (150.0-450.0) L 02/28/22 04:30 MPV 9.3 fL (7.4-11.0) 02/28/22 04:30 Neut % (Auto) 36.2 % (42.0-75.0) L 02/28/22 04:30 Lymph % (Auto) 53.9 % (21.0-51.0) H 02/28/22 04:30 [place] % (Auto) 5.1 % (0.0-13.0) 02/28/22 04:30 Eos % (Auto) 3.6 % (0.9-2.9) H 02/28/22 04:30 Baso % (Auto) 1.2 % (0.2-1.0) H 02/28/22 04:30 Neut # (Auto) 1.4 x10^3/uL (2.2-4.8) L 02/28/22 04:30 Lymph # (Auto) 2.0 X10^3/uL (1.3-2.9) 02/28/22 04:30 [place] # (Auto) 0.2 x10^3/uL (0.3-0.8) L 02/28/22 04:30 Eos # (Auto) 0.1 x10^3/uL (0.0-0.2) 02/28/22 04:30 Baso # (Auto) 0.0 X10^3/uL (0.0-0.1) 02/28/22 04:30 Absolute Nucleated RBC 0.1 /100WBC 02/28/22 04:30 Sample Site Lb 02/28/22 04:15 ABG pH 7.440 (7.35-7.45) 02/28/22 04:15 ABG pCO2 44.0 mmHg (35.0-45.0) 02/28/22 04:15 ABG pO2 91.0 mmHg (80.0-100.0) 02/28/22 04:15 ABG HCO3 29.9 mmol/L (22-26) H 02/28/22 04:15 ABG O2 Saturation 97.0 % (90-100) 02/28/22 04:15 ABG Base Excess 5.1 mmol/L (-2.0-2.0) H 02/28/22 04:15 Taco Test N/a 02/28/22 04:15 A-a Gradient 54.0 mmHg 02/28/22 04:15 FiO2 28.0 02/28/22 04:15 Blood Gas Comments Lisa well ae 02/28/22 04:15 Sodium 147 mmol/L (136-145) H 02/28/22 04:30 Corrected Sodium 147 mmol/L (136-145) H 02/28/22 04:30 Potassium 3.3 mmol/L (3.5-5.1) L 02/28/22 04:30 Chloride 110 mmol/L (98-107) H 02/28/22 04:30 Carbon Dioxide 29.5 mmol/L (21-32) 02/28/22 04:30 BUN 14 mg/dL (7-18) 02/28/22 04:30 Creatinine 0.86 mg/dL (0.55-1.02) 02/28/22 04:30 Est GFR (MDRD) Af Amer > 60 (>60) 02/28/22 04:30 Est GFR (MDRD) Non-Af > 60 (>60) 02/28/22 04:30 Glucose 117 mg/dL (65-99) H 02/28/22 04:30 Calcium 8.4 mg/dL (8.5-10.1) L 02/28/22 04:30 Corrected Calcium 9.1 mg/dL (8.5-10.1) 02/28/22 04:30 Total Bilirubin 0.20 mg/dL (0.2-1.0) 02/28/22 04:30 AST 15 Units/L (15-37) 02/28/22 04:30 ALT 14 Units/L (12-78) 02/28/22 04:30 Alkaline Phosphatase 72 Units/L (46-116) 02/28/22 04:30 Creatine Kinase 283 Units/L (26-192) H 02/28/22 04:30 CK-MB (CK-2) 1.5 ng/mL (0-4.0) 02/28/22 04:30 CK/CKMB % Calc 0.5 % (<4) 02/28/22 04:30 Troponin I High Sens 7.4 ng/L (4.0-60.0) 02/28/22 04:30 Total Protein 6.1 g/dL (6.4-8.2) L 02/28/22 04:30 Albumin 3.1 g/dL (3.4-5.0) L 02/28/22 04:30 Globulin 3.0 g/dL (2.5-4.5) 02/28/22 04:30 Albumin/Globulin Ratio 1.0 Ratio (1.1-2.1) L 02/28/22 04:30 Specimen Type Catherized urine 02/28/22 03:30 Urine Color Pale yellow (YELLOW) 02/28/22 03:30 Urine Appearance Clear (CLEAR) 02/28/22 03:30 Urine pH 6.0 (5.0 - 8.0) 02/28/22 03:30 Ur Specific [place] 1.010 (1.000-1.030) 02/28/22 03:30 Urine Protein Negative (NEGATIVE) 02/28/22 03:30 Urine Glucose (UA) Negative (NEGATIVE) 02/28/22 03:30 Urine Ketones Negative (NEGATIVE) 02/28/22 03:30 Urine Blood Negative (NEGATIVE) 02/28/22 03:30 Urine Nitrite Negative (NEGATIVE) 02/28/22 03:30 Urine Bilirubin Negative (NEGATIVE) 02/28/22 03:30 Urine Urobilinogen Normal (NORMAL) 02/28/22 03:30 Ur Leukocyte Esterase Negative (NEGATIVE) 02/28/22 03:30 Salicylates 5.4 mg/dL (2.8-20) 02/28/22 04:30 Urine Opiates Screen Negative (NEG=<300) 02/28/22 03:30 Urine Methadone Screen Negative (NEG=<300) 02/28/22 03:30 Acetaminophen 1.2 ug/mL (10-30) L 02/28/22 04:30 Ur Barbiturates Screen Negative (NEG=<200) 02/28/22 03:30 Ur Phencyclidine Scrn Negative (NEG=<25) 02/28/22 03:30 Ur Amphetamines Screen Negative (NEG=<1000) 02/28/22 03:30 U Benzodiazepines Scrn Negative (NEG=<200) 02/28/22 03:30 Urine Cocaine Screen Negative (NEG=<300) 02/28/22 03:30 U Marijuana (THC) Screen Negative (NEG=<50) 02/28/22 03:30 Ethyl Alcohol mg/dL < 3 mg/dL (0-19.9) 02/28/22 04:30 SARS-CoV-2 (PCR) Negative (NEGATIVE) 02/28/22 04:15 EKG Rate: 75 [place]: LAD Rhythm: NSR Block: None Hypertrophy: LAE ST: Nonsp Opioid Opioid Risk Tool Age (Urban box if 16-45): No History of Preadolescent Sexual Abuse: No Total: 0 Total Score Risk Category: Low Risk Copyright: [facility] predicting aberrant behaviors Diagnosis Discharge Problem: Hypokalemia Unsuccessful suicide attempt Qualifiers: Encounter type: initial encounter Qualified Code(s): X83.8XXA - Intentional self-harm by other specified means, initial encounter Altered mental state Qualifiers: Altered mental status type: somnolence Qualified Code(s): R40.0 - Somnolence
[2022-02-28 04:22] LABS: ABG BASE EXCESS 5.1 mmol/L (-2.0-2.0); ABG HCO3 29.9 mmol/L (22-26)
[2022-02-28] MEDS ORDERED: NS 1,000 ML IV 1,000 ML ONE ×2 (04:31→05:44)
[2022-02-28] MEDS ORDERED: NS 1,000 ML IV 1,000 ML IV ONE ×2 (04:36→05:05)
[2022-02-28 04:37] LABS: HEMATOCRIT 37.5 % (36.0-47.0); WHITE BLOOD COUNT 3.8 X10^3/uL (3.6-10.0)
[2022-02-28 04:45] LABS: BASOPHILS % (AUTO) 1.2 % (0.2-1.0); EOSINOPHILS # (AUTO) 0.1 x10^3/uL (0.0-0.2); EOSINOPHILS % (AUTO) 3.6 % (0.9-2.9); HEMOGLOBIN 12.7 g/dL (12.0-16.0); LYMPHOCYTES % (AUTO) 53.9 % (21.0-51.0); MEAN CORPUSCULAR HEMOGLOBIN 33.1 pg (27.0-34.0); MEAN CORPUSCULAR HGB CONC 33.9 g/dL (33.0-35.0); MEAN CORPUSCULAR VOLUME 97.6 fL (80.0-100.0); MEAN PLATELET VOLUME 9.3 fL (7.4-11.0); MONOCYTES # (AUTO) 0.2 x10^3/uL (0.3-0.8); MONOCYTES % (AUTO) 5.1 % (0.0-13.0); NEUTROPHILS # (AUTO) 1.4 x10^3/uL (2.2-4.8); NEUTROPHILS % (AUTO) 36.2 % (42.0-75.0); RED BLOOD COUNT 3.84 X10^6/uL (3.5-5.4); RED CELL DISTRIBUTION WIDTH 13.4 % (11.6-16.5)
[2022-02-28 04:46] LABS: ALANINE AMINOTRANSFERASE 14 Units/L (12-78); ALBUMIN 3.1 g/dL (3.4-5.0); ALKALINE PHOSPHATASE 72 Units/L (46-116); ASPARTATE AMINO TRANSFERASE 15 Units/L (15-37); BLOOD ALCOHOL < 3 mg/dL (0-19.9); BLOOD UREA NITROGEN 14 mg/dL (7-18); CALCIUM 8.4 mg/dL (8.5-10.1); CARBON DIOXIDE 29.5 mmol/L (21-32); CHLORIDE 110 mmol/L (98-107); COR CA(FOR HYPOALB) 9.1 mg/dL (8.5-10.1); COR NA(FOR HYPERGLY) 147 mmol/L (136-145); CREATININE 0.86 mg/dL (0.55-1.02); SODIUM 147 mmol/L (136-145); TOTAL PROTEIN 6.1 g/dL (6.4-8.2); eGFR NON BLACK RACES > 60 (>60)
[2022-02-28 04:58] LABS: ACETAMINOPHEN 1.2 ug/mL (10-30); SALICYLATE 5.4 mg/dL (2.8-20)
[2022-02-28] MEDS ORDERED: NS + KCL 20 MEQ/L 1,000 ML IV ONE (07:46)
[2022-02-28] MEDS: NS + KCL 20 MEQ/L 1,000 ML IV SCH ×3 (07:51→20:35)
[2022-02-28 08:41] LABS: CKMB % 0.5 % (<4); CREATINE KINASE MB 1.5 ng/mL (0-4.0)
[2022-02-28 09:52] VITALS: BMI 24.7
[2022-02-28 12:12] LABS: CKMB % 0.7 % (<4)
[2022-02-28 15:32] LABS: CKMB % 0.7 % (<4); CREATINE KINASE MB 1.6 ng/mL (0-4.0)
[2022-02-28 21:28] LABS: CKMB % 0.6 % (<4); CREATINE KINASE MB 1.2 ng/mL (0-4.0)
[2022-02-28] MEDS ORDERED: VALIUM INJ IVP ONE (22:45)
[2022-03-01] MEDS: NS + KCL 20 MEQ/L 1,000 ML IV SCH ×3 (00:04→08:53)
[2022-03-01 05:15] LABS: BASOPHILS % (AUTO) 0.6 % (0.2-1.0); EOSINOPHILS # (AUTO) 0.1 x10^3/uL (0.0-0.2); EOSINOPHILS % (AUTO) 1.9 % (0.9-2.9); HEMATOCRIT 38.3 % (36.0-47.0); HEMOGLOBIN 12.8 g/dL (12.0-16.0); LYMPHOCYTES # (AUTO) 2.2 X10^3/uL (1.3-2.9); LYMPHOCYTES % (AUTO) 29.7 % (21.0-51.0); MEAN CORPUSCULAR HEMOGLOBIN 33.2 pg (27.0-34.0); MEAN CORPUSCULAR HGB CONC 33.4 g/dL (33.0-35.0); MEAN CORPUSCULAR VOLUME 99.3 fL (80.0-100.0); MEAN PLATELET VOLUME 9.5 fL (7.4-11.0); MONOCYTES # (AUTO) 0.4 x10^3/uL (0.3-0.8); MONOCYTES % (AUTO) 5.9 % (0.0-13.0); NEUTROPHILS # (AUTO) 4.6 x10^3/uL (2.2-4.8); NEUTROPHILS % (AUTO) 61.9 % (42.0-75.0); RED BLOOD COUNT 3.85 X10^6/uL (3.5-5.4); RED CELL DISTRIBUTION WIDTH 13.4 % (11.6-16.5); WHITE BLOOD COUNT 7.4 X10^3/uL (3.6-10.0)
[2022-03-01 05:29] LABS: ALANINE AMINOTRANSFERASE 14 Units/L (12-78); ALBUMIN 2.8 g/dL (3.4-5.0); ALKALINE PHOSPHATASE 68 Units/L (46-116); ASPARTATE AMINO TRANSFERASE 15 Units/L (15-37); BLOOD UREA NITROGEN 7 mg/dL (7-18); CARBON DIOXIDE 28.1 mmol/L (21-32); CHLORIDE 114 mmol/L (98-107); CREATININE 0.64 mg/dL (0.55-1.02); SODIUM 148 mmol/L (136-145); TOTAL PROTEIN 5.8 g/dL (6.4-8.2); eGFR NON BLACK RACES > 60 (>60)
[2022-03-01 07:22] VITALS: BP 122/58
[2022-03-01] MEDS ORDERED: HALDOL INJ IM PRN (08:53)
[2022-03-01] MEDS ORDERED: BENADRYL CAP/TAB 25 MG PO PRN (08:54)
== END 2022-03-01 11:58 ==
LOC: ER 03:02 → ICU 03:02
PROVIDERS: ADMIT Internal Medicine; ATTEND Internal Medicine
DX: F32.89 Other specified depressive episodes; R79.89 Other specified abnormal findings of blood chemistry; T14.91XA Suicide attempt, initial encounter; E87.6 Hypokalemia; F41.8 Other specified anxiety disorders; Y92.9 Unspecified place or not applicable; I10 Essential (primary) hypertension; R94.31 Abnormal electrocardiogram [ECG] [EKG]; X83.8XXA Intentional self-harm by other specified means, initial encounter; Z20.822 Contact with and (suspected) exposure to COVID-19; R41.82 Altered mental status, unspecified